=== PATIENT | female | born 1985 | race Asian ===

== ENCOUNTER → 2021-07-17 14:32 | Outpatient (CLI) | payer OTHER, SELFPAY ==
--- NOTE | 2021-07-17 14:39 | DI.US.S_ITS ---
PROCEDURE: US OB <= 14 WEEKS FETUS INDICATIONS: INITIAL VIABILITY DATING OUTSIDE/PRIOR DATING DATA: Last menstrual period (LMP): May 15, 2021 LMP-based estimated date of delivery (ALEXUS): February 19, 2022 First dating scan (date and location): July 17, 2021 Estimated date of delivery (ALEXUS) from first dating scan: February 22, 2022 TECHNIQUE: Real-time scanning was performed of the fetus and maternal pelvic organs, with image documentation. Endovaginal scanning was also performed to better visualize the fetus and maternal ovaries. COMPARISON: None. FINDINGS: Embryo: Single living intrauterine identified. Yolk sac and pole noted. Valders-rump length measures 2.0 centimeters corresponding to ultrasound estimated gestational age of 8 weeks 4 days. Heart rate: 180 beats per minute Measurement variability in dating: +/- 4 weeks by LMP, +/- 7 days by mean sac diameter (use before 6 weeks gestation if crown-rump length not able to be measured), +/- 5 days by crown-rump length (up to 8 weeks 6 days gestation), +/- 7 days by crown-rump length (up to 13 weeks 6 days gestation). Maternal organs: Ovaries suboptimally visualized. Probable small corpus luteal cyst noted in the right ovary. IMPRESSION: Single living intrauterine with ultrasound estimated gestational age of 8 weeks 4 days corresponding to ultrasound ALEXUS of February 22, 2022. Dictated by: Bindu Salazar MD, PhD on 07/17/2021 at 17:23 Approved by: Bindu Salazar MD, PhD on 07/17/2021 at 17:25
== END ==
PROVIDERS: PCP Obstetrics & Gynecology; Referring Provider Obstetrics & Gynecology; Visit Provider Obstetrics & Gynecology
DX: Z34.01 Encounter for supervision of normal first pregnancy, first trimester (principal); Z3A.08 8 weeks gestation of pregnancy
CPT/HCPCS: 76801; 76817

== ENCOUNTER → 2021-08-27 15:30 | Outpatient (CLI) | payer OTHER, SELFPAY ==
[2021-08-27 15:53] LABS: Appearance Urine UA CLEAR; Bilirubin Urine UA NEGATIVE (NEGATIVE); Color Urine UA YELLOW; Glucose Urine UA NEGATIVE (Negative); Ketones Urine UA NEGATIVE (NEGATIVE); Leukocyte Esterase Urine UA TRACE (NEGATIVE); Nitrite Urine UA NEGATIVE (Negative); Occult Blood Urine UA NEGATIVE (Negative); Protein Urine UA NEGATIVE (Negative); Urobilinogen Urine UA 0.2 E.U./dL (0.2)
[2021-08-27 16:16] LABS: Bacteria Urine None Seen; Culture Indicated Urine Cult Not Indicated; RBC Urine 0-1/HPF (0-5/HPF); Squamous Epithelial Cell Urine 1-5 /HPF (0-5/HPF); Transitional Epi Cells Urine 1-5/HPF (0-5/HPF); WBC Urine 1-5/HPF (0-5/HPF)
[2021-08-27 16:23] LABS: Add Manual Diff / Slide Review NO; Basophils Absolute Auto 100 /uL (0-100); Basophils Percent Auto 0.9 % (0-2); Eosinophils Absolute Auto 100 /uL (0-450); Eosinophils Percent Auto 1.3 % (2-4); Hematocrit 36.7 % (36-46); Hemoglobin 12.3 g/dL (12.0-16.0); Lymphocytes Absolute Auto 1500 /uL (1100-4500); Lymphocytes Percent Auto 16.7 % (25-40); Mean Corpuscular HGB Conc 33.7 % (30-36); Mean Corpuscular Hemoglobin 28.2 PG (26-34); Mean Corpuscular Volume 83.8 fL (80-100); Monocytes Absolute Auto 700 /uL (0-900); Monocytes Percent Auto 8.2 % (3-14); Neutrophils Absolute Auto 6600 /uL (1500-7000); Neutrophils Percent Auto 72.9 % (50-75); Platelet Count 274 X10^3/uL (150-400); Red Blood Cell Count 4.37 X10^6/uL (4.0-5.2); Red Cell Distribution Width 13.1 % (11.6-14.8); White Blood Cell Count 9.1 X10^3/uL (4.5-11.0)
[2021-08-28 05:04] LABS: RPR Screen Non Reactive (Non Reactive)
[2021-08-28 11:09] LABS: Varicella IgG Antibody 1711 index (Immune >165)
[2021-08-28 19:44] LABS: Hepatitis B Surface Antigen NEGATIVE s/c (NEGATIVE)
[2021-08-28 20:00] LABS: HIV 1 & 2 Ab/Ag 4th Gen Combo NEGATIVE (NEGATIVE); Hep C Virus Ab w/Reflex Quant NEGATIVE s/c (NEGATIVE)
== END ==
PROVIDERS: PCP Obstetrics & Gynecology; Referring Provider Obstetrics & Gynecology; Visit Provider Obstetrics & Gynecology
DX: Z34.01 Encounter for supervision of normal first pregnancy, first trimester (principal)
CPT/HCPCS: 36415; 80055; 81003; 81015; 86787; 86803; 86850; 86900; 86901; 87389

== ENCOUNTER → 2021-09-03 15:01 | Outpatient (CLI) | payer OTHER, SELFPAY | PROVIDERS: PCP Obstetrics & Gynecology; Referring Provider Obstetrics & Gynecology; Visit Provider Obstetrics & Gynecology | DX: O09.519 Supervision of elderly primigravida, unspecified trimester (principal) | CPT/HCPCS: 81420 ==

== ENCOUNTER → 2021-09-26 15:34 | Outpatient (CLI) | payer OTHER, SELFPAY ==
[2021-09-29 20:51] LABS: AFP Value 64.5 ng/mL (.); Gest Age on Col Date 19.1 weeks (.); Insulin Dep Diabetes No (.); OSBR Risk 1IN 8371 (.); Results Report (.); Test Results *Screen Negative* (.)
== END ==
PROVIDERS: PCP Obstetrics & Gynecology; Referring Provider Obstetrics & Gynecology; Visit Provider Obstetrics & Gynecology
DX: Z34.02 Encounter for supervision of normal first pregnancy, second trimester (principal); Z3A.19 19 weeks gestation of pregnancy
CPT/HCPCS: 36415; 82105

== ENCOUNTER → 2021-10-13 15:22 | Outpatient (CLI) | payer OTHER, SELFPAY ==
--- NOTE | 2021-10-13 15:26 | DI.US.S_ITS ---
PROCEDURE: US OB >= 14 WEEKS FETUS INDICATIONS: Anatomy Scan OUTSIDE/PRIOR DATING DATA: Last menstrual period (LMP): May 15, 2021. LMP-based estimated date of delivery (ALEXUS): February 19, 2022. First dating scan (date and location): [facility]; July 17, 2021. Estimated date of delivery (ALEXUS) from first dating scan: February 22, 2022. The calculations are made using the ultrasound ALEXUS of February 22, 2022. TECHNIQUE: Real-time scanning was performed of the fetus, with image documentation and biometric measurements. COMPARISON: None. FINDINGS: General: A single living intrauterine gestation is present. Presentation: Variable. Placenta: Placental position is posterior , without previa. Amniotic fluid index: 14.3 cm, normal range is 5-24 cm. Single deepest vertical pocket is 4.4 cm. heart rate: 157 beats per minute. Maternal cervical canal: 4.1 cm long. Normal lower limit is 2.5 cm. biometrics: Biparietal diameter: 4.8 cm Head circumference: 17.5 cm Abdominal circumference: 15.4 cm Femur length: 3.4 cm Clinically estimated gestational age: 21 weeks, 1 day Composite gestational age from present scan: 20 weeks, 3 days Estimated weight and percentile: 365 g +/-54 g; 20th percentile Anatomic survey: Neuro: Ventricles are non-dilated at less than 10 mm. Cisterna magna is normal at 3-11 mm. Cerebellum is normal in size and morphology. Nuchal skin fold: Normal at less than 6 mm between 14-21 weeks gestational age. Face: Nose and lips, facial profile are normal. Spine: No evidence for spina bifida. Heart: 4-chambered heart is present. Echogenic focus in the left ventricle. Diaphragm: Diaphragm is intact. Stomach: Left-sided stomach is present. Kidneys: No hydronephrosis. Normal is less than 5 mm in 2nd trimester, less than 7 mm in 3rd trimester. Cord: 3-vessel cord has orthotopic insertion. Bladder: Normal in size. Extremities: All 4 extremities identified. IMPRESSION: 1. Single live intrauterine gestation as detailed above. 2. Echogenic focus within the left ventricle. We strive to produce accurate, complete, and clear reports of imaging services. To assist us in improving patient care, this report was composed using standard report templates and voice recognition software. Therefore, it may contain abnormal punctuation, insertions and/or omissions. Occasional wrong-word or sound-alike substitutions may occur. Though we review the report and make efforts to correct it, we do recommend that the report be read carefully in proper context to recognize any text inaccuracies. Dictated by: Ankit Dickson M.D. on 10/14/2021 at 9:24 Approved by: Ankit Dickson M.D. on 10/14/2021 at 9:28
== END ==
PROVIDERS: PCP Obstetrics & Gynecology; Referring Provider Obstetrics & Gynecology; Visit Provider Obstetrics & Gynecology
DX: Z36.89 Encounter for other specified antenatal screening (principal); Z3A.20 20 weeks gestation of pregnancy
CPT/HCPCS: 76811

== ENCOUNTER → 2021-11-15 08:27 | Outpatient (CLI) | payer OTHER, MEDICAID, SELFPAY ==
[2021-11-15 09:50] LABS: Hematocrit 35.7 % (36-46); Hemoglobin 12.2 g/dL (12.0-16.0)
[2021-11-15 10:02] LABS: GTT (PREG) 1 Hour PP 50gm Dose 149 mg/dL (76-139)
== END ==
PROVIDERS: Referring Provider Obstetrics & Gynecology; Visit Provider Obstetrics & Gynecology
DX: Z34.03 Encounter for supervision of normal first pregnancy, third trimester (principal); Z3A.27 27 weeks gestation of pregnancy
CPT/HCPCS: 36415; 82950; 85014; 85018

== ENCOUNTER → 2021-11-21 14:41 | Outpatient (CLI) | payer OTHER, MEDICAID, SELFPAY ==
[2021-11-21 20:22] LABS: Urine N gonorrhoeae NOT DETECTED
[2021-11-21 20:24] LABS: Urine Chlamydia NOT DETECTED
== END ==
PROVIDERS: Visit Provider Obstetrics & Gynecology
DX: Z34.03 Encounter for supervision of normal first pregnancy, third trimester (principal); Z3A.27 27 weeks gestation of pregnancy
CPT/HCPCS: 87491; 87591

== ENCOUNTER → 2021-11-24 10:03 | Outpatient (CLI) | payer OTHER, MEDICAID, SELFPAY ==
[2021-11-24 12:57] LABS: Glucose Fasting Gestational 74 mg/dL (76-95)
[2021-11-24 13:29] LABS: Glucose 1 Hour Gest 135 mg/dL (76-180)
[2021-11-24 13:29] LABS: Glucose 2 Hour Gest 111 mg/dL (76-155)
[2021-11-24 13:44] LABS: Glucose Tol Interp,Gestational INTERPRETATION
[2021-11-24 16:44] LABS: Glucose 3 Hour Gest 92 mg/dL (76-140)
== END ==
PROVIDERS: Referring Provider Obstetrics & Gynecology; Visit Provider Obstetrics & Gynecology
DX: O99.810 Abnormal glucose complicating pregnancy (principal); Z3A.27 27 weeks gestation of pregnancy
CPT/HCPCS: 36415; 82951; 82952

== ENCOUNTER → 2021-12-01 11:15 | Outpatient (CLI) | payer OTHER, MEDICAID, SELFPAY ==
--- NOTE | 2021-12-01 11:18 | DI.US.S_ITS ---
PROCEDURE: US OB LIMITED INDICATIONS: RE-EVALUATE LEFT VENTRICLE OUTFLOW TRACT ECHOGENIC FOCI OUTSIDE/PRIOR DATING DATA: Last menstrual period (LMP): 05/15/2021. LMP-based estimated date of delivery (ALEXUS): 02/19/2022. First dating scan (date and location): 07/17/2021. Estimated date of delivery (ALEXUS) from first dating scan: 02/22/2022. TECHNIQUE: Real-time scanning was performed of the fetus, with image documentation. COMPARISON: [facility], OB >= 14 WEEKS FETUS, 10/13/2021, 17:08. [facility], OB <= 14 WEEKS FETUS, 07/17/2021, 14:52. FINDINGS: A single living intrauterine gestation is present. Presentation: Vertex. Placenta: Placental position is posterior, without previa. Amniotic fluid index: 16.0 cm, normal range is 5-24 cm. heart rate: 165 beats per minute. Maternal cervical canal: 5.6 cm long. Normal lower limit is 2.5 cm. Estimated gestational age from initial scan: 20 weeks 1 day Miscellaneous: Previous echogenic focus within the left ventricle is not visualized.. IMPRESSION: 1. Single live intrauterine . 2. Previously identified left ventricular echogenic focus is no longer visualized. Dictated by: Liliya Palafox M.D. on 12/01/2021 at 13:27 Approved by: Liliya Palafox M.D. on 12/01/2021 at 13:28
== END ==
PROVIDERS: Referring Provider Obstetrics & Gynecology; Visit Provider Obstetrics & Gynecology
DX: Z3A.27 27 weeks gestation of pregnancy; O35.8XX0 Maternal care for other (suspected) fetal abnormality and damage, not applicable or unspecified
CPT/HCPCS: 76815

== ENCOUNTER → 2022-01-23 15:33 | Outpatient (CLI) | payer OTHER, MEDICAID, SELFPAY ==
[2022-01-25 15:12] LABS: Strep Grp B PCR NEG for Grp B Strep
== END ==
PROVIDERS: Visit Provider Obstetrics & Gynecology
DX: Z34.03 Encounter for supervision of normal first pregnancy, third trimester (principal); Z3A.36 36 weeks gestation of pregnancy
CPT/HCPCS: 87653

== ENCOUNTER → 2022-02-20 16:09 | Outpatient (CLI) | payer OTHER, MEDICAID, SELFPAY ==
[2022-02-20 17:19] LABS: Creatinine Urine Random 10.7 mg/dL; Protein (Total) Urine Random 12 mg/dL (0-12); Protein Creatinine Ratio Urine 1.12 GRAM/24H
== END ==
PROVIDERS: Visit Provider Obstetrics & Gynecology
DX: O16.3 Unspecified maternal hypertension, third trimester (principal); Z3A.40 40 weeks gestation of pregnancy
CPT/HCPCS: 82570; 84156

== ENCOUNTER 2022-02-20 16:37 | Inpatient (IN) | payer OTHER, MEDICAID, SELFPAY ==
[2022-02-20 18:09] LABS: Add Manual Diff / Slide Review NO; Basophils Absolute Auto 100 /uL (0-100); Basophils Percent Auto 0.8 % (0-2); Eosinophils Absolute Auto 200 /uL (0-450); Eosinophils Percent Auto 2.9 % (2-4); Hematocrit 39.6 % (36-46); Hemoglobin 13.5 g/dL (12.0-16.0); Lymphocytes Absolute Auto 1500 /uL (1100-4500); Lymphocytes Percent Auto 18.5 % (25-40); Mean Corpuscular HGB Conc 34.2 % (30-36); Mean Corpuscular Hemoglobin 28.4 PG (26-34); Mean Corpuscular Volume 82.9 fL (80-100); Monocytes Absolute Auto 600 /uL (0-900); Monocytes Percent Auto 7.4 % (3-14); Neutrophils Absolute Auto 5600 /uL (1500-7000); Neutrophils Percent Auto 70.4 % (50-75); Platelet Count 230 X10^3/uL (150-400); Red Blood Cell Count 4.77 X10^6/uL (4.0-5.2); Red Cell Distribution Width 13.8 % (11.6-14.8)
[2022-02-20 18:17] LABS: Alanine Aminotransferase 18 IU/L (<35); Albumin 4.1 g/dL (3.5-5.0); Albumin Globulin Ratio 1.2 (1.0-2.8); Alkaline Phosphatase 117 U/L (38-126); Aspartate Aminotransferase 30 IU/L (14-36); BUN Creatinine Ratio 13.2 (6-22); Bilirubin Total 0.2 mg/dL (0.2-1.3); Blood Urea Nitrogen 9 mg/dL (7-17); Calcium 9.7 mg/dL (8.4-10.2); Carbon Dioxide 22 mmol/L (22-32); Chloride 107 mmol/L (98-107); Estimated Glomerular Filt Rate > 60 mL/min (>60); Globulin 3.4 g/dL (1.7-4.1); Glucose 90 mg/dL (70-100); HEMOLYSIS < 15 (0-50); Sodium 135 mmol/L (137-145); Total Protein 7.5 g/dL (6.3-8.2)
[2022-02-20 18:55] LABS: Creatinine Urine Random 10.6 mg/dL; Protein (Total) Urine Random 12 mg/dL (0-12); Protein Creatinine Ratio Urine 1.13 GRAM/24H
[2022-02-20 19:35] LABS: Creatinine Urine Random 14.3 mg/dL; Protein (Total) Urine Random 12 mg/dL (0-12); Protein Creatinine Ratio Urine 0.83 GRAM/24H
--- NOTE | 2022-02-20 19:47 | PM.OBHP.IH.1 ---
OB HPI Date/Time Date of admission: 02/20/22 Date Patient Seen: 02/20/22 Time Patient Seen: 19:00 History of Present Condition Chief complaint: NST ALEXUS Calculator Estimated Delivery Date Method Current WG Current Estimate 02/19/22 LMP (Certain) 40w 2d Other Estimates 02/22/22 Ultrasound #1 39w 6d Estimated Gestational Age (weeks): 40 : 1 Para: 0 Narrative: This patient is a 36yo @40+1, admitted from clinic with preeclampsia without severe features. The patient has had a previously uncomplicated though she is AMA, though some recent BPs of 130s/80s. Today, she was 140s/90s in clinic, and has new onset, significant proteinuria. She denies headache, visual changes, swelling, or RUQ pain. She reports good movement, has some bloody show, and is having painful contractions q5. She has no other contributory medical, surgical, or family history. care: good care Dating criteria OB: LMP confirmed by 1st trimester US Ultrasounds: normal mid trimester US Obstetrical complications: none Medical complications OB: none Indications Indication for induction OB: gestational HTN/pre-eclampsia Preadmission Labs Last OB Lab Results: Blood Type B Positive 02/20/22 22:10 02/20/22 Antibody Screen Negative 02/20/22 22:10 02/20/22 Hematocrit 39.9 % (36-46) 02/20/22 22:10 02/20/22 Hemoglobin 13.8 g/dL (12.0-16.0) 02/20/22 22:10 02/20/22 Hepatitis B Surface Antigen Negative s/c (NEGATIVE) 08/27/21 15:33 08/27/21 Hepatitis C Antibody Negative s/c (NEGATIVE) 08/27/21 15:33 08/27/21 Rubella Antibody 156.0 IU/mL (>15) 08/27/21 15:33 08/27/21 Varicella-Zoster IgG Antibody 1711 index (Immune >165) 08/27/21 15:33 08/27/21 Glucose 1 Hour 149 mg/dL (76-139) H 11/15/21 09:51 11/15/21 Group B Streptococcus (PCR) Neg for grp b strep 01/23/22 15:33 01/23/22 Glucose Tolerance Testing: Fasting (74), 1 hr (135), 2 hr (111) and 3 hr (92) -: Chlamydia screen: negative, Gonorrhea screen: negative and Urine: negative Genetic Screens: Cell-free DNA: Normal External Labs -: Urine: negative Evaluation Evaluation Baseline heart rate: 130 Variability: Average (6-10) monitor accelerations: Present Monitor Decelerations: Absent Category of Tracing: Reactive Status: Category l Dilation (cm): 1 Effacement (%): 80 Dilation: 1-2 cm Effacement: >/=80% station: 0 Position of cervix: mid Consistency: soft Caicedo score: 9 [facility] Medical History Acne (~05/2021) AMA (advanced maternal age) primigravida 35+ COVID-19 (~12/2020) Family History Father Diabetes mellitus Hypertension Mother Pre-diabetes Grandfather Cough Grandmother No problems noted. Grandfather No problems noted. Grandmother No problems noted. Sister Healthy adult Sister Healthy adult Brother Healthy adult Family/Other Diabetes mellitus Social History marital status: unmarried,living together number of children: 0 household members: significant other and family lives independently: Yes caregiver/support person: Yes pets and animals: No education level: college occupational status: employed current occupational exposures/hazards: Yes Previous occupational history: [employer] : works on the [employer] special elke needs: No Smoking Status: Never smoker second hand exposure: No alcohol intake: former substance use type: does not use Meds Home Medications and Allergies Home Medications Medication Instructions Recorded Confirmed Type ascorbic acid (vitamin C) 1,000 mg 1 g PO DAILY tab 07/22/21 02/20/22 History tablet prenat.vits,lidya,fza-dzyd-yklmk 1 tab PO DAILY 07/22/21 02/20/22 History Allergies Allergy/AdvReac Type Severity Reaction Status Date / Time No Known Drug Allergies Allergy Verified 02/20/22 22:36 Review of Systems Constitutional Constitutional: Reports system reviewed and no additional complaints, except as documented Cardiovascular Cardiovascular: Reports system reviewed and no additional complaints, except as documented Respiratory Respiratory: Reports system reviewed and no additional complaints, except as documented Gastrointestinal Gastrointestinal: Reports as per HPI Genitourinary Genitourinary: Reports as per HPI Neurologic Neurologic: Reports system reviewed and no additional complaints, except as documented OB Exam [facility] Head: normal to inspection Resp Auscultation: clear to auscultation bilaterally Cardio Rate: regular rate Rhythm: regular rhythm Extremities Lower extremity: Yes normal to inspection GI Palpation: Yes soft and No tender External Female Exam: Yes normal external appearance Presentation: vertex Estimated Weight (lbs): 7 Objective Labs Result Diagrams: 02/20/22 22:10 02/20/22 17:15 Labs: Laboratory Results - last 24 hr 02/20/22 02/20/22 02/20/22 16:49 17:15 17:15 WBC 8.0 RBC 4.77 Hgb 13.5 Hct 39.6 MCV 82.9 MCH 28.4 MCHC 34.2 RDW 13.8 Plt Count 230 Neut % (Auto) 70.4 Lymph % (Auto) 18.5 L [place] % (Auto) 7.4 Eos % (Auto) 2.9 Baso % (Auto) 0.8 Neut # (Auto) 5600 Lymph # (Auto) 1500 [place] # (Auto) 600 Eos # (Auto) 200 Baso # (Auto) 100 Sodium 135 L Potassium 4.0 Chloride 107 Carbon Dioxide 22 BUN 9 Creatinine 0.68 Estimated GFR > 60 BUN/Creatinine Ratio 13.2 Glucose 90 Uric Acid 7.0 H Calcium 9.7 Total Bilirubin 0.2 AST 30 ALT 18 Alkaline Phosphatase 117 Total Protein 7.5 Albumin 4.1 Globulin 3.4 Albumin/Globulin Ratio 1.2 U Random Total Protein 12 Urine Creatinine 10.6 Protein/Creatinin Ratio 1.13 02/20/22 19:30 WBC RBC Hgb Hct MCV MCH MCHC RDW Plt Count Neut % (Auto) Lymph % (Auto) [place] % (Auto) Eos % (Auto) Baso % (Auto) Neut # (Auto) Lymph # (Auto) [place] # (Auto) Eos # (Auto) Baso # (Auto) Sodium Potassium Chloride Carbon Dioxide BUN Creatinine Estimated GFR BUN/Creatinine Ratio Glucose Uric Acid Calcium Total Bilirubin AST ALT Alkaline Phosphatase Total Protein Albumin Globulin Albumin/Globulin Ratio U Random Total Protein 12 Urine Creatinine 14.3 Protein/Creatinin Ratio 0.83 Assessment and Plan Assessment and Plan Assessment and Plan narrative: This patient is admitted with preeclampsia without severe features, meeting diagnostic criteria even though she is largely normotensive. She will be admitted for delivery, especially given that she lives remote from the hospital and is past her due date. The status of the labor floor prevents induction of labor overnight, but she will be admitted for expectant management and close monitoring of status and vital signs. A cervical membrane sweep was performed to facilitate labor. - GBS negative - NST q shift - BPs q1hr while awake, q4 while asleep - Reassessment of labor status with induction per pitocin protocol if necessary anticipated in AM.
[2022-02-20 21:15] VITALS: BP 135/82
[2022-02-20 22:29] LABS: Add Manual Diff / Slide Review NO; Basophils Absolute Auto 100 /uL (0-100); Basophils Percent Auto 0.8 % (0-2); Eosinophils Absolute Auto 200 /uL (0-450); Eosinophils Percent Auto 2.7 % (2-4); Hematocrit 39.9 % (36-46); Hemoglobin 13.8 g/dL (12.0-16.0); Lymphocytes Absolute Auto 1500 /uL (1100-4500); Lymphocytes Percent Auto 17.9 % (25-40); Mean Corpuscular HGB Conc 34.7 % (30-36); Mean Corpuscular Hemoglobin 28.6 PG (26-34); Mean Corpuscular Volume 82.5 fL (80-100); Monocytes Absolute Auto 600 /uL (0-900); Monocytes Percent Auto 7.4 % (3-14); Neutrophils Absolute Auto 6200 /uL (1500-7000); Neutrophils Percent Auto 71.2 % (50-75); Platelet Count 245 X10^3/uL (150-400); Red Blood Cell Count 4.84 X10^6/uL (4.0-5.2); Red Cell Distribution Width 13.8 % (11.6-14.8); White Blood Cell Count 8.6 X10^3/uL (4.5-11.0)
[2022-02-20 22:42] LABS: COVID19 -Nasal RAPID Negative (Negative)
--- NOTE | 2022-02-21 08:40 | PM.OBPNLAB ---
Date/Time Date Patient Seen: 02/21/22 Time Patient Seen: 08:40 Pain Control Pain control: tolerating well Comments: 03/17, contractions more frequent and painful overnight Pelvic Exam Dilation (cm): 3 Effacement (%): 100 station: 0 Amniotic membrane status: Intact Comments: Vertex palpably OP Contractions Contraction frequency (min): 3 Contraction duration (min): 1 Status status: Category l Heart Rate Baseline: 130 Monitor Accelerations: Present Monitor Decelerations: Absent Monitor Variability: Moderate Assessment and Plan Plan: continuous present management Comments: Patient is in early labor. Will monitor for progress, and patient encouraged to ambulate. Recheck later in AM with augmentation as indicated.
--- NOTE | 2022-02-21 14:49 | PM.OBPNLAB ---
Date/Time Date Patient Seen: 02/21/22 Time Patient Seen: 14:49 Pain Control Pain control: tolerating well Pelvic Exam Dilation (cm): 4 Effacement (%): 100 station: 0 Amniotic membrane status: Ruptured (AROM of forebag) Comments: SROM for clear fluid at 1:30 PM. On this exam, forebag ruptured. Both for clear fluid. Contractions Contraction frequency (min): 2 Status status: Category l Heart Rate Baseline: 140 Monitor Accelerations: Present Monitor Decelerations: Absent Monitor Variability: Moderate Assessment and Plan Assessment: active labor Plan: continuous present management
--- NOTE | 2022-02-21 18:21 | PM.OBPNLAB ---
Date/Time Date Patient Seen: 02/21/22 Time Patient Seen: 18:21 Pain Control Pain control: tolerating well Pelvic Exam Dilation (cm): 5 Effacement (%): 100 station: 0 Amniotic membrane status: Leaking (clear fluid) Comments: ROP and asynclitic confirmed with ultrasound- placed in exaggerated pickering position. Contractions Pitocin rate (mU/min): 1 Contraction frequency (min): 2 Status status: Category l Heart Rate Baseline: 135 Monitor Accelerations: Present Monitor Decelerations: Absent Monitor Variability: Moderate Comments: 110s-130s/80s today, afebrile, not tachycardic Assessment and Plan Assessment: induction ongoing Plan: continuous present management Comments: This patient is making slow progress, spontaneously laboring with SROM at 1:45 and then AROM of a forebag at 2:45. Patient 5cm but has caput, ROP and asynclitic presentation palpable on exam and confirmed with ultrasound. Given irregular contraction pattern to start pitocin slowly, aggressively reposition.
[2022-02-21] MEDS: LACTATED RINGERS 1,000 ML 100 ML IV ×2 (18:57→19:56)
[2022-02-21] MEDS: OXYTOCIN PREMIX 30 UNIT/500 ML PLAST..BAG IV (20:48)
--- NOTE | 2022-02-21 21:46 | PM.OBPNLAB ---
Date/Time Date Patient Seen: 02/21/22 Time Patient Seen: 21:46 Pain Control Pain control: epidural Pelvic Exam Dilation (cm): 8 Effacement (%): 100 station: 0 Amniotic membrane status: Leaking (clear fluid) Comments: Direct OP, resistant to turning vertex to OA presentation Contractions Pitocin rate (mU/min): 1 Contraction frequency (min): 2 Status status: Category l Heart Rate Baseline: 130 Monitor Accelerations: Present Monitor Decelerations: Variable Monitor Variability: Moderate Comments: + scalp stim Assessment and Plan Assessment: active labor Plan: continuous present management Comments: This patient has a cat 2 EFM in the setting of rapid cervical change, from 6cm at 8:30 to 8cm at 9:30. good scalp stim. Pitocin off, will reposition and continue to closely monitor.
--- NOTE | 2022-02-21 22:30 | P.PNOB_ITS ---
Date/Time Date Patient Seen: 02/21/22 Time Patient Seen: 22:30 Pain Control Pain control: epidural Pelvic Exam Dilation (cm): 9 Effacement (%): 100 station: 0 Amniotic membrane status: Leaking (clear fluid) Comments: Direct OP Contractions Pitocin rate (mU/min): 0 Contraction frequency (min): 5 Status status: Category ll Heart Rate Baseline: 140 Monitor Accelerations: Absent Monitor Decelerations: Late and Variable Monitor Variability: Minimal Assessment and Plan Comments: This patient is 9cm, but direct OP and beginning to have recurrent late and variable decelerations with 1x prolonged deceleration. We discussed the cat 2 EFM, and that given the overall clinical picture I would like to prepare for section and recheck her cervix prior to transfer to the OR. We discu ssed the risks of section including infection, hemorrhage, damage to bowel and bladder, and danger in future pregnancies. We discussed the benefit of safety to baby. Informed consent was obtained and consents were signed.
--- NOTE | 2022-02-21 23:16 | SUR.OPER ---
Supine on Padded OR bed, head on pillow, safety belt at thigh, arms secured on padded arm boards at <90 degrees abduction. Bump under right buttock. Legs uncrossed with pillow under knees, gel pad to heels, tape over blanket to lower legs.
[2022-02-21] MEDS: AZITHROMYCIN 500 MG in DEXTROSE 5% IN WATER 250 ML IV (23:20)
[2022-02-21] MEDS: CEFAZOLIN 2 GM/20 ML SYRINGE IV (23:22)
[2022-02-21] MEDS: TRANEXAMIC ACID 1,000 MG in SODIUM CHLORIDE 0.9% 100 ML 200 ML IV (23:49)
--- NOTE | 2022-02-21 23:54 | SUR.OPER ---
Viable baby girl born at 2331, placenta and cord tubes sent with OB nurses.
--- NOTE | 2022-02-22 00:49 | P.OP_ITS ---
Operative Date/Time/Diagnoses Date of procedure: 02/21/22 Time of procedure: 23:00 Pre-op diagnosis: cat 2 EFM Post-op diagnosis: same Procedure & Clinicians Procedure: Primary section Same procedure as scheduled: Yes Indications: cat 2 EFM, OP presentation Surgeon: Rosa Holloway Quality Analyst/Technical Writer: Fariha Baldwin Reason for Quality Analyst/Technical Writer: Assistance with retraction, delivery of infant, and suturing Anesthesia Type: Spinal Operative Notes Findings: Normal uterus, tubes, and ovaries. Female infant in cephalic, direct OP presentation. Loose nuchal cord reduced during delivery, weight 5#12, Apgars 7+8. Markedly contracted pelvis. Closure Type: primary Specimen(s): cord blood and cord pH Intraoperative meds administered: Pitocin and Tranexamic acid Applied: Catheter Estimated Blood Loss (mL): 1,000 Procedure in detail: EBL: 1000ccs Fluids:800ccs LR UOP: 200ccs clear yellow urine Procedures: The patient was taken to the operating room after spinal anesthesia was bolused in the labor room. The heart rate was found to be 76 after transfer to the OR table, and she was prepped and draped emergently in a sterile fashion in the dorsal supine position with a leftward tilt. A Pfannenstiel skin incision was made with a scalpel and carried through to the underlying layer of fascia. The fascia was incised in the midline and extended bluntly. The superior aspect of this incision was grasped with Dion clamps, elevated, and the underlying rectus muscles dissected off bluntly and with the curved Brewster scissors. Attention was then turned to the inferior aspect of this incision which, in a similar fashion, was grasped, tented up with the Dion clamps, and the rectus muscles dissected off bluntly and with the curved Brewster scissors. The rectus muscles were then in the midline, and the peritoneum entered bluntly. The peritoneal incision was extended superiorly and inferiorly with good visualization of the bladder. The bladder blade was inserted and the vesicouterine peritoneum identified, grasped with pickups, and entered sharply with the Metzenbaum scissors. This incision was extended laterally, and the bladder flap created digitally. The bladder blade was then reinserted and the lower uterine segment incised in transverse fashion with the scalpel. The uterine incision was bluntly extended laterally. The bladder blade was removed, and the infant's head delivered atraumatically with some difficulty due to the molding and OP presentation. The cord was immediately clamped and cut, the handed to the pediatrics team, and a portion of cord reserved for a cord pH. The placenta was then removed spontaneously, and the uterus was exteriorized and cleared of all clots and debris. The uterine incision was repaired with 1-0 chromic in a running, locked fashion. A right sided broad ligament extension was noted, requiring figure of 8 suturing to achieve hemostasis. A 2nd layer of the same suture was used to obtain excellent hemostasis. The uterus was returned to the abdomen, and the gutters were cleared of all clots and debris. The bladder flap was closed with 2-0 Vicryl in a running fashion, and the fascia reapproximated with 0 Vicryl in a running fashion. The blunt entry into the peritoneum made peritoneal closure difficult. The subcutaneous layer was placed with 3 0 Vicryl in an interrupted fashion and the skin was closed with 4-0 biosyn in a running fashion. The patient tolerated the procedure well sponge lap and needle counts were correct x2. 2 g of Ancef and 500mg Azithromycin were given at commencement of the case. The patient was taken to the recovery room in stable condition. Complications: none Baby 1: Infant Gender: Male Presentation: vertex Position: Occiput Posterior Placental Delivery Description: Manual Removal Cord Vessel Description: Nuchal Cord score (1 min): 7 score (5 min): 8 weight: 5 lb 12 oz Post-operative Condition: stable Disposition: PACU Aftercare: routine postop
[2022-02-22 00:50] VITALS: BP 125/53; PULSE 97; RESP 22; O2SAT 100
[2022-02-22 00:55] VITALS: BP 121/76; PULSE 96; RESP 22; O2SAT 100
[2022-02-22 01:52] LABS: Add Manual Diff / Slide Review NO; Basophils Absolute Auto 100 /uL (0-100); Basophils Percent Auto 0.6 % (0-2); Eosinophils Absolute Auto 0 /uL (0-450); Eosinophils Percent Auto 0.1 % (2-4); Hematocrit 34.9 % (36-46); Hemoglobin 11.7 g/dL (12.0-16.0); Lymphocytes Absolute Auto 700 /uL (1100-4500); Lymphocytes Percent Auto 4.9 % (25-40); Mean Corpuscular HGB Conc 33.6 % (30-36); Mean Corpuscular Hemoglobin 27.9 PG (26-34); Monocytes Absolute Auto 700 /uL (0-900); Monocytes Percent Auto 5.3 % (3-14); Neutrophils Absolute Auto 12200 /uL (1500-7000); Neutrophils Percent Auto 89.1 % (50-75); Platelet Count 209 X10^3/uL (150-400); Red Blood Cell Count 4.21 X10^6/uL (4.0-5.2); Red Cell Distribution Width 13.8 % (11.6-14.8); White Blood Cell Count 13.7 X10^3/uL (4.5-11.0)
[2022-02-22 06:23] LABS: Add Manual Diff / Slide Review NO; Basophils Absolute Auto 100 /uL (0-100); Basophils Percent Auto 0.4 % (0-2); Eosinophils Absolute Auto 0 /uL (0-450); Hematocrit 31.4 % (36-46); Hemoglobin 10.8 g/dL (12.0-16.0); Lymphocytes Absolute Auto 800 /uL (1100-4500); Lymphocytes Percent Auto 5.6 % (25-40); Mean Corpuscular HGB Conc 34.3 % (30-36); Mean Corpuscular Hemoglobin 28.2 PG (26-34); Mean Corpuscular Volume 82.2 fL (80-100); Monocytes Absolute Auto 900 /uL (0-900); Monocytes Percent Auto 6.8 % (3-14); Neutrophils Absolute Auto 11900 /uL (1500-7000); Neutrophils Percent Auto 87.2 % (50-75); Platelet Count 189 X10^3/uL (150-400); Red Blood Cell Count 3.82 X10^6/uL (4.0-5.2); Red Cell Distribution Width 13.7 % (11.6-14.8); White Blood Cell Count 13.7 X10^3/uL (4.5-11.0)
[2022-02-22] MEDS: DOCUSATE 100 MG CAPSULE 200 MG PO (09:20)
[2022-02-22 09:21] VITALS: TEMP 37
[2022-02-22] MEDS: OXYCODONE IR 5 MG TABLET PO ×2 (09:21→17:27)
[2022-02-22 09:22] VITALS: TEMP 37
[2022-02-22] MEDS: ACETAMINOPHEN 325 MG TABLET 650 MG PO ×2 (09:22→17:27)
[2022-02-22] MEDS: FERROUS SULFATE 325 MG TABLET PO (09:23)
[2022-02-22] MEDS: PRENATAL VIT,CALC/IRON/FOLIC 1 TABLET 1 TAB PO (09:23)
--- NOTE | 2022-02-22 11:38 | PM.OBPN.1 ---
Subjective - OB Subjective Patient comments: no complaints, pain well controlled and tolerating diet baby status: doing well feeding status: exclusively breast feeding Narrative: This patient is a 36yo POD#1 s/p pCS for intolerance of labor overnight last night. Patient reports good pain control on PO meds, tolerating diet, no BRAVO, visual changes, SOB, RUQ pain. Has mcneal in place and has not ambulated, feeling gas but no flatus. Date Patient Seen: 02/22/22 Time Patient Seen: 11:41 Exam Vital Signs (past 8 hours): 110s/70s today, HR 80s, afebrile 02/22/22 09:21 02/22/22 09:22 Temperature 98.6 F 98.6 F Oxygen Delivery Method Room Air Const General: cooperative, healthy appearing, comfortable and well groomed Resp Effort & Inspection: normal respiratory effort Auscultation: clear to auscultation bilaterally Cardio Rate: regular rate Rhythm: regular rhythm GI Inspection: distended (soft, tympanic) Palpation: soft and No tender Other: fundus firm, well below u Extrem General: normal to inspection Objective Labs Result Diagrams: 02/22/22 06:13 02/20/22 17:15 Labs: Laboratory Results - last 24 hr 02/22/22 02/22/22 01:43 06:13 WBC 13.7 H D 13.7 H RBC 4.21 3.82 L Hgb 11.7 L 10.8 L Hct 34.9 L 31.4 L MCV 83.0 82.2 MCH 27.9 28.2 MCHC 33.6 34.3 RDW 13.8 13.7 Plt Count 209 189 Neut % (Auto) 89.1 H 87.2 H Lymph % (Auto) 4.9 L 5.6 L [place] % (Auto) 5.3 6.8 Eos % (Auto) 0.1 L 0.0 L Baso % (Auto) 0.6 0.4 Neut # (Auto) 87580 H 93079 H Lymph # (Auto) 700 L 800 L [place] # (Auto) 700 900 Eos # (Auto) 0 0 Baso # (Auto) 100 100 Assessment & Plan Plan day: 1 plan OB: routine postop care Comments: This patient is POD#1 s/p primary section for intolerance of labor. The CS was complicated by a broad ligament extension, but hemostasis was eventually achieved. The patient is recovering well today, though she is for a voiding trial and ambulation today. - PIH labs tomorrow AM, repeat CBC - ambulation encouraged, ISS at bedside - VT now Time Spent With Patient Time: Total time spent is greater than 50% in coordination of care (as documented) at patient's floor/unit and/or counseling patient: Time with patient: 15-24 minutes
[2022-02-23] MEDS: OXYCODONE IR 5 MG TABLET PO ×3 (04:15→17:00)
[2022-02-23] MEDS: ACETAMINOPHEN 325 MG TABLET 650 MG PO ×2 (04:16→17:00)
[2022-02-23 05:27] LABS: Add Manual Diff / Slide Review NO; Basophils Absolute Auto 100 /uL (0-100); Basophils Percent Auto 0.4 % (0-2); Eosinophils Absolute Auto 0 /uL (0-450); Eosinophils Percent Auto 0.3 % (2-4); Hematocrit 30.4 % (36-46); Hemoglobin 10.5 g/dL (12.0-16.0); Lymphocytes Absolute Auto 900 /uL (1100-4500); Lymphocytes Percent Auto 5.7 % (25-40); Mean Corpuscular HGB Conc 34.4 % (30-36); Mean Corpuscular Hemoglobin 28.4 PG (26-34); Mean Corpuscular Volume 82.4 fL (80-100); Monocytes Absolute Auto 1100 /uL (0-900); Monocytes Percent Auto 6.9 % (3-14); Neutrophils Absolute Auto 13400 /uL (1500-7000); Neutrophils Percent Auto 86.7 % (50-75); Platelet Count 184 X10^3/uL (150-400); Red Blood Cell Count 3.69 X10^6/uL (4.0-5.2); Red Cell Distribution Width 14.3 % (11.6-14.8); White Blood Cell Count 15.4 X10^3/uL (4.5-11.0)
[2022-02-23 05:44] LABS: Alanine Aminotransferase 16 IU/L (<35); Alkaline Phosphatase 76 U/L (38-126); Aspartate Aminotransferase 35 IU/L (14-36); BUN Creatinine Ratio 15.9 (6-22); Bilirubin Total 0.3 mg/dL (0.2-1.3); Blood Urea Nitrogen 11 mg/dL (7-17); Calcium 8.6 mg/dL (8.4-10.2); Carbon Dioxide 24 mmol/L (22-32); Chloride 105 mmol/L (98-107); Estimated Glomerular Filt Rate > 60 mL/min (>60); Glucose 108 mg/dL (70-100); HEMOLYSIS < 15 (0-50); Lactate Dehydrogenase 585 U/L (313-618); Potassium 3.6 mmol/L (3.4-5.1); Sodium 133 mmol/L (137-145)
[2022-02-23 09:05] VITALS: TEMP 36.4
[2022-02-23] MEDS: FERROUS SULFATE 325 MG TABLET PO (09:05)
[2022-02-23] MEDS: DOCUSATE 100 MG CAPSULE 200 MG PO (09:05)
[2022-02-23] MEDS: PRENATAL VIT,CALC/IRON/FOLIC 1 TABLET 1 TAB PO (09:05)
--- NOTE | 2022-02-23 15:49 | P.DS_ITS ---
Discharge Providers Provider Date of admission: 02/20/22 16:37 Discharge Date: 02/23/22 Primary care physician: Doctor Maribel MD Consults: 02/20/22 21:43 Consult to Anesthesiology Urgent Comment: Consulting Provider: Anesthesiologist Reason for consultation: labor 02/22/22 00:57 Consult to Plant Health Care Technician Routine Comment: Discharge provider: Rosa Holloway MD Summary Hospital Course Date Patient Seen: 02/23/22 Time Patient Seen: 08:30 Diagnoses: preeclampsia Hospital Course: THis patient was admitted for eventual induction of labor after being found to have preclampsia without severe features at 37 weeks gestation. Staffing required a 12 hour observation after admission, and the patient entered spontaneous labor. She had a cat 2 EFM and was taken for primary CS for intolerance of labor. Her postoperative course was uneventful, and she was discharged home on POD#2. Peripartum Data Infant Delivery Method: Section complications: none [place] 1: Gender: Male Disposition of : home Status at Discharge Cognitive/behavioral status at discharge: oriented Overall status at discharge: patient is progressing back to baseline Time Spent with Patient Time attestation: Total time spent providing and/or coordinating discharge services: Objective Labs Result Diagrams: 02/23/22 05:15 02/23/22 05:15 Labs: Laboratory Results - last 24 hr 02/23/22 02/23/22 05:15 05:15 WBC 15.4 H RBC 3.69 L Hgb 10.5 L Hct 30.4 L MCV 82.4 MCH 28.4 MCHC 34.4 RDW 14.3 Plt Count 184 Neut % (Auto) 86.7 H Lymph % (Auto) 5.7 L [place] % (Auto) 6.9 Eos % (Auto) 0.3 L Baso % (Auto) 0.4 Neut # (Auto) 74226 H Lymph # (Auto) 900 L [place] # (Auto) 1100 H Eos # (Auto) 0 Baso # (Auto) 100 Sodium 133 L Potassium 3.6 Chloride 105 Carbon Dioxide 24 BUN 11 Creatinine 0.69 Estimated GFR > 60 BUN/Creatinine Ratio 15.9 Glucose 108 H Uric Acid 6.0 Calcium 8.6 Total Bilirubin 0.3 AST 35 ALT 16 Alkaline Phosphatase 76 Lactate Dehydrogenase 585 Total Protein 6.0 L Albumin 3.0 L Globulin 3.0 Albumin/Globulin Ratio 1.0 Exam Vital Signs (past 8 hours): BPs 110s-120s/70s , HR 80s, afebrile 02/23/22 09:05 Temperature 97.5 F L Oxygen Delivery Method Room Air Narrative Exam Narrative: Patient doing well this AM, mild lochia, voiding, passing flatus, ambulating, tolerating PO. No PIH symptoms. Const General: cooperative, healthy appearing, comfortable and well groomed Resp Effort & Inspection: normal respiratory effort Auscultation: clear to auscultation bilaterally Cardio Rate: regular rate Rhythm: regular rhythm GI Inspection: incision (c/d/i) Palpation: soft and No tender Extrem General: normal to inspection Discharge Plan Discharge Plan Patient Disposition: Home Discharge orders & Medications Prescriptions: New oxycodone 5 mg tablet 5 mg PO Q6H PRN (Reason: pain) Qty: 20 0RF Rx Instructions: Take as often as every 6 hours for pain. Continued prenat.vits,lidya,xde-usst-pypju Tablet 1 tab PO DAILY 0RF ascorbic acid (vitamin C) 1,000 mg tablet 1 g PO DAILY 0RF Follow up/Referrals: Rio Walters MD [Physician] - 1 Week (Incision and BP check on WednesdayFebruary 27 at 3:30pm with a 3:15 check-in time. Please follow up with Dr. Walters for a 6 week check on WednesdayApril 03 at 1:30pm with a 1:15 check in time. If you have any questions/concerns or need to reschedule please call .) Diet/Activity/Treatments Diet: Regular Activity: Nothing in the vagina for 6 weeks. Avoid lifting more than 10 pounds for 6 weeks. If you develop headaches, visual changes, fevers, chills, nausea, increasing pain, increasing bleeding, or any other symptoms, call or come to the emergency department. Skin/Wound/Dressing Care Report to your healthcare provider any signs of infection, such as:: chills, fever, night sweats, increased pain, unusual drainage and unusual redness Dressing: Can shower with bandage, pat dry. For removal at incision check. Visit Report/Discharge Packet Instructions: DI for , DI for Prescription Opioid Use Stand Alone Forms: Discharge: Care Discharge Data Primary Care Provider: Miscellaneous,Doctor
[2022-02-23 16:16] VITALS: BP 118/74; PULSE 88; RESP 17; TEMP 36.8
[2022-02-23 17:00] VITALS: TEMP 36.9
== END 2022-02-23 19:00 | disposition home or self-care (01) | DRG 788 ==
PROVIDERS: Obstetrics & Gynecology; Admitting Provider Obstetrics & Gynecology; Referring Provider Obstetrics & Gynecology; Visit Provider Obstetrics & Gynecology
PROC: 10D00Z1 Extraction of Products of Conception, Low, Open Approach (ICD-10-PCS; CPT 59514; principal; 2022-02-21 23:00)
DX: O76 Abnormality in fetal heart rate and rhythm complicating labor and delivery (principal); O69.81X0 Labor and delivery complicated by cord around neck, without compression, not applicable or unspecified; Z3A.40 40 weeks gestation of pregnancy; Z37.0 Single live birth; O14.04 Mild to moderate pre-eclampsia, complicating childbirth; O32.8XX0 Maternal care for other malpresentation of fetus, not applicable or unspecified; Z20.822 Contact with and (suspected) exposure to COVID-19
CPT/HCPCS: 01967; 01968; 36415; 59025; 59050; 59510; 59514; 80053; 82570; 83615; 84156; 84550; 85025; 86850; 86900; 86901; 87635; C9803; G0379; J0690; J1885; J2250; J2274; J2590; J3010

== ENCOUNTER 2023-02-05 15:56 | Emergency (ER) | payer OTHER, MEDICAID, SELFPAY ==
[2023-02-05 16:09] VITALS: BP 145/88; PULSE 87; RESP 17; TEMP 36.6; O2SAT 100; BMI 23.8
[2023-02-05 17:30] VITALS: BP 121/69; PULSE 78; RESP 12; O2SAT 100
--- NOTE | 2023-02-05 17:33 | PC.NURSE ---
patient went to PCP for medicatons for migraine. + Preg at PCP/ HTN at clinic and upon arrival. Patient reports increase stress secondary to her baby current health condition. currently not on birthcontrol. Denies cramping, vaginal discharge or urinary symptoms
[2023-02-05 18:00] VITALS: BP 114/72; PULSE 68; RESP 12; O2SAT 100
[2023-02-05 18:11] VITALS: BP 116/72; PULSE 78; RESP 12
--- NOTE | 2023-02-05 18:14 | ED_ITS ---
HPI - General Adult General Chief complaint: Hypertension Stated complaint: Ref from provider Time Seen by Provider: 02/05/23 18:05 Source: patient Mode of arrival: Ambulatory History of Present Illness HPI narrative: 37-year-old female nonsmoker presents at the request of her primary care provider for evaluation of elevated blood pressure in the setting of . Patient has no symptoms such as blurred vision, chest pain or shortness of breath. She has no abdominal pain, bleeding, leakage of fluid or other. Related Data Home Medications Medication Instructions Recorded Confirmed prenat.vits,lidya,qzy-lrzv-nuhxp 1 tab PO DAILY 07/22/21 02/05/23 Allergies Allergy/AdvReac Type Severity Reaction Status Date / Time No Known Drug Allergies Allergy Verified 02/05/23 16:13 Review of Systems Review of Systems Narrative: GENERAL: Denies chills, fatigue, malaise, fever, sweats. HEENT: Denies sinus pain, ear pain, sore throat, difficulty swallowing, dizziness. RESPIRATORY: Denies dyspnea, cough, wheezing, hemoptysis, sputum. CARDIOVASCULAR: Denies chest pain, palpitations, orthopnea, edema, GASTROINTESTINAL: Denies nausea, vomiting, abdominal pain, diarrhea, constipation, melena. : Denies dysuria, frequency, incontinence, hematuria, urinary retention. MUSCULOSKELETAL: denies weakness, joint pain, or bony pain SKIN: Denies rash, skin lesions, or other NEUROLOGIC: Denies weakness, headache, numbness, change in speech, confusion, seizures, incoordination. PSYCHIATRIC: No concerning psychosocial issues. 12 point review of systems is negative except for those stated above Patient History Medical History (Updated 02/05/23 @ 18:22 by Solomon Mckeon DO) Acne (~05/2021) AMA (advanced maternal age) primigravida 35+ COVID-19 (~12/2020) Hypertension affecting Family History Father Diabetes mellitus Hypertension Mother Pre-diabetes Grandfather Cough Grandmother No problems noted. Grandfather No problems noted. Grandmother No problems noted. Sister Healthy adult Sister Healthy adult Brother Healthy adult Family/Other Diabetes mellitus Social History marital status: unmarried,living together number of children: 0 household members: significant other and family lives independently: Yes caregiver/support person: Yes pets and animals: No education level: college occupational status: employed current occupational exposures/hazards: Yes Previous occupational history: [employer] : works on [employer]. special elke needs: No Smoking Status: Never smoker second hand exposure: No alcohol intake: former substance use type: does not use Smoking Status: Never smoker alcohol intake frequency: other Substance Use Type: does not use Exam Narrative Exam Narrative: GEN: AOx3 and in mild distress EYES: Pupils are equal, round, and reactive to light and accommodation. Ex traoccular muscles are intact bilaterally. There is no subconjunctival hemorrhage or exudate. CHEST: Lungs are clear to auscultation bilaterally and free of wheezes, rales, or rhonchi. Heart rate is regular rhythm, there are no murmurs, clicks, rubs, or gallops. There is no chest wall tenderness. ABD: Abdomen is soft and nontender. There is no guarding or rebound. Bowel sounds are normal in all 4 quadrants. There is no mass or organomegaly. EXT: Full painless ROM of all extremities with no loss of sensation or strength. SKIN: Warm, pink, and dry. No erythema or rash Initial Vital Signs Initial Vital Signs: Vital Signs Temperature 98 F 02/05/23 16:09 Pulse Rate 87 02/05/23 16:09 Respiratory Rate 17 02/05/23 16:09 Blood Pressure 145/88 H 02/05/23 16:09 Pulse Oximetry 100 02/05/23 16:09 Oxygen Delivery Method Room Air 02/05/23 16:09 Course Vital Signs Vital signs: Vital Signs - 8 hr 02/05/23 16:09 02/05/23 18:00 02/05/23 17:30 Temperature 98 F Pulse Rate 87 68 78 Respiratory Rate 17 12 12 Blood Pressure 145/88 H 114/72 121/69 Pulse Oximetry 100 100 100 Oxygen Delivery Method Room Air Room Air Room Air 02/05/23 18:11 Temperature Pulse Rate 78 Respiratory Rate 12 Blood Pressure 116/72 Pulse Oximetry Oxygen Delivery Method Medical Decision Making Lab Data Labs: Point of Care Testing Test Results Positive Urine Dip Bedside Urine Glucose Negative Bedside Urine Bilirubin - Negative Bedside Urine Ketone - Negative Urine Specific [place] 1.005 Bedside Urine Occult Blood - Negative Bedside Urine pH 6.0 Bedside Urine Protein - Negative Bedside Urine Urobilinogen - Negative Bedside Urine Nitrite - Negative Bedside Urine Leukocytes - Negative Esterase Point of care testing: Point of Care Testing Test Results Positive Urine Dip Bedside Urine Glucose Negative Bedside Urine Bilirubin - Negative Bedside Urine Ketone - Negative Urine Specific [place] 1.005 Bedside Urine Occult Blood - Negative Bedside Urine pH 6.0 Bedside Urine Protein - Negative Bedside Urine Urobilinogen - Negative Bedside Urine Nitrite - Negative Bedside Urine Leukocytes - Negative Esterase MDM Narrative Medical decision making narrative: [37] year old patient presents with Multiple etiologies for patient's symptoms considered including, but not limited to: [gestational HTN, pre-eclampsia vs. other] Prior Charts reviewed in our EMR Primary Historian: patient Labs reviewed and interpreted by myself: Urine POC without protein Patient completely asymptomatic, initial blood pressure slightly elevated, improves to 116/72. Urine without evidence of protein. No indication for further workup. Findings and discharge diagnosis discussed with patient/family followed by verbalization of understanding Return precautions discussed with patient/family whom verbalize understanding of diagnosis and plan Discharge Plan Departure Patient Disposition: Home Clinical Impression: Feared complaint without diagnosis Instructions: Pre-eclampsia Activity Restrictions/Additional Instructions: *You have been diagnosed with [brief elevated blood pressure, resolved on arrival. As we discussed your history and physical exam are reassuring and current vital signs are normal, urine shows no protein or other abnormal finding. There is no indication for a further workup at this time.] *What to do: *Please continue to take your regular medications as directed. *Please follow up with your primary care provider in 2-3 days, call for an appointment. Let them know you were seen in the Emergency Department and that we ask that you be seen in follow up. We will electronically transmit a record of today's note if your PCP is in our system *If you do not have a primary care provider please contact the [facility] Resource line at [phone]. They will ask some questions about your medical history and help get you set up with a doctor in the community. *Return to Emergency Department if you should have any new, worsening or concerning symptoms, such as [fever greater than 101 F, shaking chills, worsening pain, persistent vomiting or other bothersome symptoms] Prescriptions: No Action prenat.vits,ldiya,ffl-xrxu-mluqh Tablet 1 tab PO DAILY Referrals: ProviderAlessandra [Primary Care Provider] - Stand Alone Forms: Patient Portal/API
== END 2023-02-05 18:26 | disposition home or self-care (01) ==
PROVIDERS: Emergency Provider Emergency Medicine
DX: O16.1 Unspecified maternal hypertension, first trimester (principal)
CPT/HCPCS: 81003; 81025; 99282

== ENCOUNTER → 2023-02-25 16:03 | Outpatient (CLI) | payer OTHER, MEDICAID, SELFPAY ==
--- NOTE | 2023-02-25 16:04 | DI.US.S_ITS ---
PROCEDURE: US OB <= 14 WEEKS FETUS INDICATIONS: dating and viability OUTSIDE/PRIOR DATING DATA: Last menstrual period (LMP): December 22, 2022. LMP-based estimated date of delivery (ALEXUS): September 28, 2023. First dating scan (date and location): February 25, 2022. Estimated date of delivery (ALEXUS) from first dating scan: October 20, 2023. TECHNIQUE: Real-time scanning was performed of the fetus and maternal pelvic organs, with image documentation. Endovaginal scanning was also performed to better visualize the fetus and maternal ovaries. COMPARISON: [facility], , OB <= 14 WEEKS FETUS, 07/17/2021, 14:52. FINDINGS: Embryo: Single intrauterine gestation with estimated sonographic gestational age of approximately 6 weeks and 1 day based off crown-rump length measurement of approximately 0.4 cm. A 2nd amnion is visualized without pole or cardiac activity. Heart rate: No cardiac activity visualized on today's exam. Maternal organs: The right ovary is not visualized. Left ovary demonstrates presence of a corpus luteal cyst. No suspicious ovarian/adnexal masses. IMPRESSION: Intrauterine gestational sac with visualization of 2 amnions. 1 contains a pole measuring approximately 6 weeks and 1 day in gestational age based off crown-rump length measurement. No cardiac activity visualized. The 2nd amnion does not contain either a pole or evidence for cardiac activity. Recommend clinical correlation and surveillance with short interval repeat imaging to document expected progression of . We strive to produce accurate, complete, and clear reports of imaging services. To assist us in improving patient care, this report was composed using standard report templates and voice recognition software. Therefore, it may contain abnormal punctuation, insertions and/or omissions. Occasional wrong-word or sound-alike substitutions may occur. Though we review the report and make efforts to correct it, we do recommend that the report be read carefully in proper context to recognize any text inaccuracies. Dictated by: Cj Moss M.D. on 02/26/2023 at 10:49 Approved by: Cj Moss M.D. on 02/26/2023 at 11:04
== END ==
PROVIDERS: Referring Provider Obstetrics & Gynecology; Visit Provider Obstetrics & Gynecology
DX: O36.80X0 Pregnancy with inconclusive fetal viability, not applicable or unspecified
CPT/HCPCS: 76801; 76817

== ENCOUNTER → 2023-07-14 16:29 | Outpatient (CLI) | payer OTHER, MEDICAID, SELFPAY ==
--- NOTE | 2023-07-14 16:30 | DI.US.S_ITS ---
PROCEDURE: US OB <= 14 WEEKS FETUS INDICATIONS: DATING OUTSIDE/PRIOR DATING DATA: First dating scan (date and location): 07/14/2023. Estimated date of delivery (ALEXUS) from first dating scan: 02/10/2024. TECHNIQUE: Real-time scanning was performed of the fetus and maternal pelvic organs, with image documentation. Endovaginal scanning was also performed to better visualize the fetus and maternal ovaries. COMPARISON: [facility], , OB <= 14 WEEKS FETUS, 02/25/2023, 16:09. FINDINGS: Embryo: [place]-rump length measures 3 cm corresponding to 9 weeks 6 days. Heart rate: 169 Maternal organs: Adnexa grossly normal bilaterally. IMPRESSION: 9 week 6 day single living IUP. We strive to produce accurate, complete, and clear reports of imaging services. To assist us in improving patient care, this report was composed using standard report templates and voice recognition software. Therefore, it may contain abnormal punctuation, insertions and/or omissions. Occasional wrong-word or sound-alike substitutions may occur. Though we review the report and make efforts to correct it, we do recommend that the report be read carefully in proper context to recognize any text inaccuracies. Dictated by: Alexis GIBBONS Interpreted: Tasha Garcia MD on 07/14/2023 at 20:35 Transcribed by: ALEX on 07/15/2023 at 8:20 Approved by: Tasha Garcia M.D. on 07/15/2023 at 10:23
== END ==
PROVIDERS: Referring Provider Specialist; Visit Provider Specialist
DX: Z34.81 Encounter for supervision of other normal pregnancy, first trimester (principal); Z3A.09 9 weeks gestation of pregnancy
CPT/HCPCS: 76801; 76817

== ENCOUNTER → 2023-08-03 15:18 | Outpatient (CLI) | payer OTHER, MEDICAID, SELFPAY ==
[2023-08-03 15:47] LABS: Specimen Label NATERA TEST KIT.
[2023-08-03 16:16] LABS: Add Manual Diff / Slide Review NO; Basophils Absolute Auto 100 /uL (0-100); Basophils Percent Auto 0.9 % (0-2); Eosinophils Absolute Auto 300 /uL (0-450); Eosinophils Percent Auto 2.8 % (2-4); Hematocrit 38.7 % (36-46); Hemoglobin 13.3 g/dL (12.0-16.0); Lymphocytes Absolute Auto 1900 /uL (1100-4500); Lymphocytes Percent Auto 19.7 % (25-40); Mean Corpuscular HGB Conc 34.3 % (30-36); Mean Corpuscular Hemoglobin 27.8 PG (26-34); Mean Corpuscular Volume 81.2 fL (80-100); Monocytes Absolute Auto 800 /uL (0-900); Monocytes Percent Auto 8.6 % (3-14); Neutrophils Absolute Auto 6400 /uL (1500-7000); Platelet Count 291 X10^3/uL (150-400); Red Blood Cell Count 4.77 X10^6/uL (4.0-5.2); Red Cell Distribution Width 13.5 % (11.6-14.8); White Blood Cell Count 9.4 X10^3/uL (4.5-11.0)
[2023-08-03 17:14] LABS: Hepatitis B Surface Antigen NEGATIVE s/c (NEGATIVE)
[2023-08-03 17:27] LABS: HIV 1 & 2 Ab/Ag 4th Gen Combo NEGATIVE (NEGATIVE); Hep C Virus Ab w/Reflex Quant NEGATIVE s/c (NEGATIVE)
[2023-08-04 05:54] LABS: RPR Screen Non Reactive (Non Reactive)
[2023-08-04 12:56] LABS: Varicella IgG Antibody 2038 index (Immune >165)
== END ==
PROVIDERS: Specialist; Referring Provider Obstetrics & Gynecology; Visit Provider Obstetrics & Gynecology
DX: Z34.81 Encounter for supervision of other normal pregnancy, first trimester (principal); Z34.80 Encounter for supervision of other normal pregnancy, unspecified trimester
CPT/HCPCS: 80055; 86787; 86803; 86850; 86900; 86901; 87389

== ENCOUNTER → 2023-08-31 15:42 | Outpatient (CLI) | payer OTHER, MEDICAID, SELFPAY ==
[2023-09-02 22:29] LABS: AFP Value 36.3 ng/mL (.); Gest Age on Col Date 20.7 weeks (.); Insulin Dep Diabetes No (.); OSBR Risk 1IN 10000 (.); Results Report (.); Test Results *Screen Negative* (.)
[2023-09-03 09:40] LABS: PDF SCANNED
== END ==
PROVIDERS: Referring Provider Obstetrics & Gynecology; Visit Provider Obstetrics & Gynecology
DX: Z34.82 Encounter for supervision of other normal pregnancy, second trimester (principal); Z3A.17 17 weeks gestation of pregnancy
CPT/HCPCS: 36415; 82105

== ENCOUNTER → 2023-10-01 16:00 | Outpatient (CLI) | payer OTHER, MEDICAID, SELFPAY ==
--- NOTE | 2023-10-01 16:01 | DI.US.S_ITS ---
PROCEDURE: US OB >= 14 WEEKS FETUS INDICATIONS: ANATOMY OUTSIDE/PRIOR DATING DATA: Last menstrual period (LMP): Unknown. LMP-based estimated date of delivery (ALEXUS): Unknown. First dating scan (date and location): 07/14/2023. Estimated date of delivery (ALEXUS) from first dating scan: 02/09/2023. The calculations are made using the ultrasound ALEXUS of 02/10/2024. TECHNIQUE: Real-time scanning was performed of the fetus, with image documentation and biometric measurements. Endovaginal scanning: Not performed. COMPARISON: [facility], OB <= 14 WEEKS FETUS, 07/14/2023, 16:44. FINDINGS: General: A single living intrauterine gestation is present. Presentation: Vertex. Placenta: Placental position is anterior, without previa. Amniotic fluid index: 11.8 cm, normal range is 5-24 cm. Single deepest vertical pocket is 3.5 cm. heart rate: 163 beats per minute. Maternal cervical canal: 4.9 cm long. Normal lower limit is 2.5 cm. biometrics: Biparietal diameter: 5.0 cm, 21 weeks 0 days Head circumference: 18.2 cm, 20 weeks 4 days Abdominal circumference: 15.8 cm, 21 weeks 0 days Femur length: 3.5 cm, 21 weeks 1 day Clinically estimated gestational age: 21 weeks 1 day Composite gestational age from present scan: 21 weeks 0 days Estimated weight and percentile: 391 g, 36 percentile. Anatomic survey: Neuro: Ventricles are non-dilated at less than 10 mm. Cisterna magna is normal at 3-11 mm. Cerebellum is normal in size and morphology. Nuchal skin fold: Normal at less than 6 mm between 14-21 weeks gestational age. Face: Nose and lips, facial profile are normal. Spine: No evidence for spina bifida. Heart: 4-chambered heart is present, with normal ventricular outflow tracts. Diaphragm: Diaphragm is intact. Stomach: Left-sided stomach is present. Kidneys: No hydronephrosis. Normal is less than 5 mm in 2nd trimester, less than 7 mm in 3rd trimester. Cord: 3-vessel cord has orthotopic insertion. Bladder: Normal in size. Extremities: All 4 extremities identified. IMPRESSION: 1. James living intrauterine at 21 weeks 0 days based on today's ultrasound. Fetus is in the 36 percentile for weight. 2. Normal placenta and amniotic fluid. 3. Normal and complete anatomic survey. We strive to produce accurate, complete, and clear reports of imaging services. To assist us in improving patient care, this report was composed using standard report templates and voice recognition software. Therefore, it may contain abnormal punctuation, insertions and/or omissions. Occasional wrong-word or sound-alike substitutions may occur. Though we review the report and make efforts to correct it, we do recommend that the report be read carefully in proper context to recognize any text inaccuracies. Dictated by: Tian Duque M.D. on 10/03/2023 at 23:07 Approved by: Tian Duque M.D. on 10/03/2023 at 23:11
== END ==
PROVIDERS: Referring Provider Obstetrics & Gynecology; Visit Provider Obstetrics & Gynecology
DX: Z34.82 Encounter for supervision of other normal pregnancy, second trimester (principal); Z3A.20 20 weeks gestation of pregnancy
CPT/HCPCS: 76811

== ENCOUNTER → 2023-11-10 09:09 | Outpatient (CLI) | payer OTHER, SELFPAY ==
[2023-11-10 12:00] LABS: Hematocrit 38.7 % (36-46); Hemoglobin 13.2 g/dL (12.0-16.0)
[2023-11-10 12:22] LABS: GTT (PREG) 1 Hour PP 50gm Dose 140 mg/dL (76-139)
== END ==
PROVIDERS: Referring Provider Obstetrics & Gynecology; Visit Provider Obstetrics & Gynecology
DX: Z34.90 Encounter for supervision of normal pregnancy, unspecified, unspecified trimester (principal); Z3A.26 26 weeks gestation of pregnancy
CPT/HCPCS: 36415; 82950; 85014; 85018

== ENCOUNTER → 2023-11-29 07:50 | Outpatient (CLI) | payer OTHER, SELFPAY ==
[2023-11-29 08:57] LABS: Glucose Fasting Gestational 83 mg/dL (76-95)
[2023-11-29 09:56] LABS: Glucose 1 Hour Gest 152 mg/dL (76-180)
[2023-11-29 11:33] LABS: Glucose Tol Interp,Gestational INTERPRETATION
[2023-11-29 11:42] LABS: Glucose 2 Hour Gest 121 mg/dL (76-155)
[2023-11-29 12:36] LABS: Glucose 3 Hour Gest 60 mg/dL (76-140)
== END ==
LOC: LAB 07:51
PROVIDERS: Referring Provider Obstetrics & Gynecology; Visit Provider Obstetrics & Gynecology
DX: O99.810 Abnormal glucose complicating pregnancy (principal)
CPT/HCPCS: 36415; 82951; 82952

== ENCOUNTER → 2024-01-11 11:56 | Outpatient (CLI) | payer OTHER, SELFPAY ==
[2024-01-12 11:42] LABS: Strep Grp B PCR POS for Grp B Strep
== END ==
PROVIDERS: PCP Student in an Organized Health Care Education/Training Program; Visit Provider Obstetrics & Gynecology
DX: Z34.83 Encounter for supervision of other normal pregnancy, third trimester (principal)
CPT/HCPCS: 87653

== ENCOUNTER → 2024-01-18 09:20 | Outpatient (CLI) | payer OTHER, SELFPAY | PROVIDERS: PCP Student in an Organized Health Care Education/Training Program; Visit Provider Obstetrics & Gynecology | DX: R82.998 Other abnormal findings in urine (principal) | CPT/HCPCS: 87086 ==

== ENCOUNTER 2024-02-03 06:02 | Inpatient (IN) | payer OTHER, SELFPAY ==
--- NOTE | 2024-02-02 18:05 | PM.OBHP.1 ---
OB HPI Date/Time Date of admission: 02/02/24 Date Patient Seen: 02/02/24 Time Patient Seen: 07:15 History of Present Condition Chief complaint: Repeat w/davey salpingectomy : 3 Para: 1 Estimated Date of Delivery: 02/06/24 Estimated Gestational Age (weeks): 39+4 Narrative: Karli Feng is a 38 year old , admitted now at 39+ 4 weeks gestational age for repeat section and bilateral salpingectomy for elective sterilization. Patient's course has been largely unremarkable with the exception that she had an abnormal 1 hour GDM screen 3 hour GTT did not meet criteria for gestational diabetes. Early dating is solid and she has had appropriate milestones throughout. GBS is positive. Indications Operative indications ( section): previous uterine surgery History of Present care: good care Dating criteria: LMP confirmed by 1st trimester US Ultrasounds: normal 1st trimester US and normal mid trimester US Obstetrical complications: none Medical complications: none Preadmission Labs Blood type: B (+) positive -: Antibody screen: negative, GBS status: positive, HBsAG: negative, HIV: negative and RPR/VDLR: negative -: Chlamydia screen: not detected and Gonorrhea screen: not detected -: Rubella: immune and Varicella: immune HCT: 38.7 HCAB: negative PAP: Normal Quad screen: Normal (AFP) Cell-free DNA: Low risk female 1 hr GTT: 140 3 hr GTT: 1 hr (152), 2 hr (121) and 3 hr (60) Fasting blood glucose: 83 Prior (ies) History: CS x1 PFSH Medical History (Updated 01/18/24 @ 09:41 by Rio Walters MD) Spontaneous miscarriage Hypertension affecting Abnormal O'Figueredo glucose challenge test, antepartum COVID-19 (~12/2020) Acne (~05/2021) AMA (advanced maternal age) primigravida 35+ Surgical History (Updated 08/31/23 @ 15:38 by Rio Walters MD) Previous section Family History (Updated 02/23/23 @ 15:40 by Berenice Peralta RN) Father Diabetes mellitus Hypertension Mother Pre-diabetes Grandfather Cough Grandmother No problems noted. Grandfather Alzheimer's disease Grandmother No problems noted. Sister Healthy adult Sister Healthy adult Brother Healthy adult Family/Other Diabetes mellitus Social History marital status: number of children: 1 household members: spouse, family (mother) and children lives independently: Yes caregiver/support person: Yes housing: [facility] ([facility]) pets and animals: No education level: college (some college) occupational status: employed current occupational exposures/hazards: No (no hazmat duties while ) Previous occupational history: [employer] : works on [employer]. special elke needs: No travel history: recent ([place]) seatbelt use: always water heater temp set < 120 deg: Yes working smoke detector in home: Yes fire extinguisher in home: No carbon monox detector in home: Yes firearms in home: No do you feel safe at home: Yes Smoking Status: Never smoker second hand exposure: No alcohol intake: former (occasionally when not or ) substance use type: does not use during the past year weight has: other (baby is only 10 months old, currently ~15 lb above pre-baby weight) well-balanced diet: about half the time daily servings fruits/ve-4 caffeine: Yes (1-2 cups coffee/day) Type(s) of exercise: walking frequency: 1-2 times per week Meds Home Medications and Allergies Home Medications Medication Instructions Recorded Confirmed Type prenat.vits,lidya,syz-exaq-oktec 1 tab PO DAILY 07/22/21 01/25/24 History ascorbic acid (vitamin C) 1,000 mg 1 g PO DAILY 02/23/23 01/25/24 History capsule vit no.95-ferrous 1 tab PO DAILY #90 tabs 09/28/23 01/25/24 Rx fumarate 28 mg-folic acid 800 mcg tablet ( Multivitamins) Allergies Allergy/AdvReac Type Severity Reaction Status Date / Time No Known Drug Allergies Allergy Verified 01/25/24 10:37 Review of Systems Review of Systems Narrative: Problem-specific ROS positives included in HPI OB Exam Vital signs Blood Pressure: 141/75 Pulse Rate: 71 HENMT Head: normal to inspection, normocephalic and atraumatic Eyes General: appearance normal, both eyes and all related structures Resp Effort & Inspection: normal respiratory effort and able to speak in complete sentences Auscultation: clear to auscultation bilaterally Cardio Rate: regular rate Rhythm: regular rhythm Heart Sounds: S1 normal, S2 normal and no murmurs Extremities Lower extremity: Yes normal to inspection GI Inspection: normal to inspection Palpation: Yes soft and Yes no hepatosplenomegaly Uterus Location (Fundal Height): 38 Presentation: vertex Estimated Weight (lbs): 8 Objective Labs 02/03/24 06:50 Assessment and Plan Assessment and Plan Assessment and Plan narrative: ASSESSMENT 1. Intrauterine , 39+4 wks 2. Prior section 3. Request for sterilization PLAN 1. Admit for repeat CS and bilateral salpingectomy 2. See admission orders
[2024-02-03] VITALS (7 sets, daily range): BP systolic 122–150; BP diastolic 75–98; PULSE 70–88; RESP 11–18; TEMP 36.2–36.8; O2SAT 99
--- NOTE | 2024-02-03 | PATH_ITS ---
[facility] Accession Number: [id number] No. of containers..01 Tissue . 01 Material submitted: . fallopian tube - BILATERAL FALLOPIAN TUBES . 01 Diagnosis: BILATERAL FALLOPIAN TUBES, BILATERAL SALPINGECTOMY: Benign bilateral fallopian tubes. . MRV 02/07/2024 1632 Local . 01 Electronically signed: . Deonna Lundberg MD, Pathologist NPI- [id number] . 01 Gross description: . Received in formalin with two identifiers and bilateral fallopian tubes, are two unoriented fimbriated fallopian tubes measuring 7.8 x 0.9 cm and 8.3 x 0.9 cm, respectively. Both tubes have violaceous, smooth serosa with no cysts identified. Sectioning reveals unremarkable stellate lumens. Photography Instructor sections to include one-half of bisected fimbriae and cross sections are submitted as follows: . A1: Longer fallopian tube. A2: [place] fallopian tube. ([id number]) /MRV 02/04/2024 1232 Local . 01 Pathologist provided ICD-10: Z30.2, Z98.891 . 01 CPT . 106047, 970533 Specimen Comment: A courtesy copy of this report has been sent to [phone] Performed at: 01 [facility] [address] [place] [address] [address], [place], [place] [id number] MD Aniket No MD Phone: [phone]
[2024-02-03 07:18] LABS: Add Manual Diff / Slide Review NO; Basophils Absolute Auto 100 /uL (0-100); Eosinophils Absolute Auto 100 /uL (0-450); Eosinophils Percent Auto 1.2 % (2-4); Hemoglobin 14.2 g/dL (12.0-16.0); Lymphocytes Absolute Auto 1900 /uL (1100-4500); Mean Corpuscular HGB Conc 33.9 % (30-36); Mean Corpuscular Hemoglobin 28.2 PG (26-34); Mean Corpuscular Volume 83.4 fL (80-100); Monocytes Absolute Auto 900 /uL (0-900); Monocytes Percent Auto 8.8 % (3-14); Neutrophils Absolute Auto 6900 /uL (1500-7000); Platelet Count 216 X10^3/uL (150-400); Red Blood Cell Count 5.04 X10^6/uL (4.0-5.2); Red Cell Distribution Width 15.1 % (11.6-14.8); White Blood Cell Count 9.9 X10^3/uL (4.5-11.0)
--- NOTE | 2024-02-03 07:32 | PM.PREOP ---
Pre-operative Note COVID-19 COVID-19 status: Not tested Interval Note History & Physical reviewed/Exam performed by Physician: Yes Changes to H&P: No
[2024-02-03] MEDS: CEFAZOLIN 2 GM/100 ML PREMIX 100 ML IV (08:03)
[2024-02-03] MEDS: ACETAMINOPHEN IV 1,000 MG/100 ML VIAL 400 MG IV (08:10)
--- NOTE | 2024-02-03 09:43 | P.OP_ITS ---
Operative Date/Time/Diagnoses Date of procedure: 02/03/24 Time of procedure: 08:15 Pre-op diagnosis: Intrauterine gestation, jean, 39+4 weeks EGA Previous section x 1 Request for sterilization Post-op diagnosis: same Procedure & Clinicians Procedure: Repeat section (low transverse cervical) Bilateral salpingectomy Same procedure as scheduled: Yes Indications: Karli Feng is a 38 year old , admitted now at 39+ 4 weeks gestational age for repeat section and bilateral salpingectomy for elective steri lization. Patient's course has been largely unremarkable with the exception that she had an abnormal 1 hour GDM screen 3 hour GTT did not meet criteria for gestational diabetes. Early dating is solid and she has had appropriate milestones throughout. GBS is positive. Surgeon: Rio Walters Auger Press Operator: Shell Parra Reason for Auger Press Operator: Auger Press Operator required for the safe, effective, and timely completion of this surgery. Anesthesia Type: Spinal Operative Notes Findings: Viable female BW 2175 gms. (4 lbs. 12.7 oz.), Apgars 9/9, delivered from the vertex presentation. Normal gravid anatomy. Closure Type: primary Specimen(s): cord blood Intraoperative meds administered: Ketorolac and Pitocin Applied: Catheter Estimated Blood Loss (mL): 400 Blood products transfused: none Procedure in detail: With her informed written consent, the patient was taken to the operating room and placed in the supine position for a [] section procedure, for the indication(s) above. The abdomen was prepped and draped in the usual manner for section and a pre-surgical timeout was taken per [facility] OR protocol. Once effective anesthesia was confirmed, a 15 cm transverse Pfan nenstiel incision was made in the skin and taken down through the subcutaneous tissues to the deep fascia. The deep fascia was incised transversely, the rectus abdominal eyes bluntly and sharply, and the peritoneal cavity entered without difficulty. The lower uterine segment was visualized and the position/presentation palpated. A transverse incision at or above the vesicouterine reflection was made with Metzenbaum scissors and transverse hysterotomy performed near the midline. Amniotomy revealed [] fluid. The incision was extended bilaterally with digital traction and the was delivered [] from the [] presentation. The infant was vigorous and cord clamping delayed for 60 seconds. The placenta was delivered intact using gentle cord traction and fundal massage.The uterine cavity was then cleared of any clot/debris first with a sloppy wet lap tape followed by a dry lap tape. Ring forceps were then applied to the angles and the midline of the incised ATUL. A primary closure of the uterus was then accomplished with #1 CCGS in a running interlocking stitch followed by a 2nd layer of #1 CCGS in a running interlocking imbricating stitch. No additional sutures was/were required to achieve complete hemostasis. Attention was then turned to performance of the bilateral salpingectomy and the desire for permanent sterilization was reconfirmed with the patient. The left fallopian tube was grasped at its distal most portion and using the handheld LigaSure device, the fimbria home varicose was coagulated and divided with the device then taken across the mesosalpinx to the cornua where the cornual portion of the fallopian tube was transected and the specimen removed. There was excellent hemostasis in the left adnexa following salpingectomy. Attention was then turned to the right with the distal right tube grasped and the fimbria ovarian divided with the LigaSure device. The device was then taken across the mesosalpinx on the right side to the level of the cornual where the fallopian tube was amputated as it had been on the left. It too was passed off the operative field and the right adnexa was seen to be completely hemostatic. Once pelvic hemostasis was assured, the bladder flap and anterior peritoneum were closed with a running 2-0 Vicryl suture and the fascia closed with #1 Vicryl in a running stitch initiated at both angles and tying separately near the midline. The subcutaneous tissues were reapproximated with 2-0 plain catgut suture using inverted interrupted stitches. The skin edges were then brought together with 4-0 Monocryl in a subcuticular closure and the incision was reinforced with 1 Steri-Strips. An appropriate compression dressing was applied and the patient transferred to PACU for recovery and subsequent transfer to the Center for recuperation. Complications: none [place] Baby 1: Infant Gender: Female Presentation: vertex Position: Left Occiput Transverse Placental Delivery Description: Spontaneous Cord Vessel Description: 3 Vessels score (1 min): 9 score (5 min): 9 weight: 4 lb 12.721 oz Post-operative Condition: stable Disposition: PACU Aftercare: routine postop
--- NOTE | 2024-02-03 10:06 | SUR.PHASEI ---
Report given to Christine who was at bedside during recovery. Patient transferred to the center by
[2024-02-03] MEDS: diphenhydrAMINE 50 MG/ML VIAL 25 MG IV ×2 (12:02→15:05)
[2024-02-03] MEDS: KETOROLAC 30 MG/ML VIAL IV ×2 (15:07→20:58)
[2024-02-03] MEDS: ACETAMINOPHEN 325 MG TABLET 650 MG PO ×2 (15:10→20:58)
[2024-02-03] MEDS: LABETALOL 100 MG TABLET 200 MG PO (22:01)
[2024-02-04 01:00] VITALS: BP 141/90; PULSE 88
[2024-02-04] MEDS: KETOROLAC 30 MG/ML VIAL IV (03:14)
[2024-02-04] MEDS: ACETAMINOPHEN 325 MG TABLET 650 MG PO ×4 (03:15→20:59)
[2024-02-04 06:29] LABS: Add Manual Diff / Slide Review NO; Basophils Absolute Auto 100 /uL (0-100); Basophils Percent Auto 0.5 % (0-2); Eosinophils Absolute Auto 100 /uL (0-450); Eosinophils Percent Auto 1.2 % (2-4); Hematocrit 28.3 % (36-46); Hemoglobin 9.9 g/dL (12.0-16.0); Lymphocytes Absolute Auto 1200 /uL (1100-4500); Lymphocytes Percent Auto 11.9 % (25-40); Mean Corpuscular HGB Conc 34.8 % (30-36); Mean Corpuscular Volume 83.3 fL (80-100); Monocytes Absolute Auto 800 /uL (0-900); Monocytes Percent Auto 8.2 % (3-14); Neutrophils Absolute Auto 8000 /uL (1500-7000); Neutrophils Percent Auto 78.2 % (50-75); Platelet Count 139 X10^3/uL (150-400); Red Cell Distribution Width 14.7 % (11.6-14.8); White Blood Cell Count 10.3 X10^3/uL (4.5-11.0)
[2024-02-04 08:24] VITALS: BP 146/82; PULSE 80
[2024-02-04] MEDS: PRENATAL VIT,CALC/IRON/FOLIC 1 TABLET 1 TAB PO (08:24)
[2024-02-04] MEDS: LABETALOL 100 MG TABLET 200 MG PO ×2 (08:24→15:11)
[2024-02-04] MEDS: IBUPROFEN 600 MG TABLET PO ×3 (09:42→20:59)
[2024-02-04 15:11] VITALS: BP 132/82; PULSE 75
--- NOTE | 2024-02-04 17:09 | PM.OBPN.1 ---
Subjective - OB Subjective Patient comments: no complaints, pain well controlled, incisional pain, tolerating diet and flatus present baby status: doing well, nursing well and other (Rechecking weight in AM prior to discharge) feeding status: exclusively breast feeding Narrative: Doing well overnight status post repeat section. Her is SGA but doing well although stability of weight is yet to be determined. Mother is having no N&V but has required benadryl for itching. Date Patient Seen: 02/04/24 Time Patient Seen: 12:40 Exam Vital Signs (past 8 hours): - 02/04/24 15:11 Pulse Rate 75 Blood Pressure 132/82 Oxygen Delivery Method Room Air Const General: cooperative and comfortable Nutritional Appearance: average body habitus Orientation: alert and oriented x3 HENMT Head: normal to inspection, atraumatic and abrasion Ears: hearing grossly normal bilaterally Face and sinus: face symmetric Eyes General: appearance normal, both eyes and all related structures Conjunctivae: conjunctivae normal Sclera: sclerae normal EOM: EOM intact bilaterally Neck Neck: normal visual inspection Resp Effort & Inspection: normal respiratory effort and able to speak in complete sentences Auscultation: clear to auscultation bilaterally Cardio Rate: regular rate Rhythm: regular rhythm Heart Sounds: S1 normal, S2 normal and no murmurs GI Inspection: normal to inspection and incision (Surgical dressing clean and dry) Palpation: soft, no hepatosplenomegaly and tender (Mild, diffuse postsurgical tenderness) External Female Exam: other (No significant bleeding noted) Uterus Location (Fundal Height): 14 Extrem General: no calf tenderness Psych Appearance: grossly normal Mental Status: mental status grossly normal Speech and Movement: speech and movement normal Mood: congruent mood Affect: normal affect Attitude: cooperative Thought Process: normal Thought Content: normal Judgment: judgment good Objective Labs 02/04/24 06:00 Labs: Laboratory Results - last 24 hr 02/04/24 06:00 WBC 10.3 RBC 3.40 L Hgb 9.9 L Hct 28.3 L MCV 83.3 MCH 29.0 MCHC 34.8 RDW 14.7 Plt Count 139 L Neut % (Auto) 78.2 H Lymph % (Auto) 11.9 L [place] % (Auto) 8.2 Eos % (Auto) 1.2 L Baso % (Auto) 0.5 Neut # (Auto) 8000 H Lymph # (Auto) 1200 [place] # (Auto) 800 Eos # (Auto) 100 Baso # (Auto) 100 Assessment & Plan Plan day: 1 plan OB: routine postop care Comments: Anticipate discharge in the AM Time Spent With Patient Time: Total time spent is greater than 50% in coordination of care (as documented) at patient's floor/unit and/or counseling patient: Time with patient: less than 15 minutes
[2024-02-04 17:50] VITALS: BP 145/90
[2024-02-04] MEDS: NIFEdipine 30 MG TAB ER PO (21:01)
[2024-02-05] MEDS: ACETAMINOPHEN 325 MG TABLET 650 MG PO ×2 (03:03→08:58)
[2024-02-05] MEDS: IBUPROFEN 600 MG TABLET PO ×2 (03:03→08:58)
--- NOTE | 2024-02-05 08:42 | P.DS_ITS ---
History of Present Illness History of Present Illness Date Patient Seen: 02/05/24 Time Patient Seen: 08:43 Date of Onset of Symptoms: 02/02/24 Chief complaint: Repeat w/davey salpingectomy Discharge Providers Provider Date of admission: 02/03/24 06:02 Discharge Date: 02/05/24 Primary care physician: Leonardo Zhao Consults: 02/03/24 10:07 Consult to Material Requisitioner Routine Comment: Discharge provider: Ofe Castro MD Summary Hospital Course Discharge Diagnosis: s/p repeat section with bilateral salpingectomy Hospital Course: 38yo at 39+ 4 weeks gestational age admitted for repeat section and bilateral salpingectomy for elective sterilization. Patient had all routine care, antepartum course notable for elevated 1h OGTT (3h wnl), MFM eval for echo secondary to prior child with CHD (no anomalies identified). Patient underwent procedure per Dr. Walters without complication, liveborn SGA female . EBL 400. Immediate postoperative course was complicated by new mild range maternal BP without additional sequelae. Patient was started on 200mg labetalol TID on POD1, transitioned to PO nifedipine 30mg XR and remained normotensive thereafter. Breast feeding, s/p sterilization for contraception, Rh+, rubella immune. Patient discharged to home on POD2 meeting all discharge milestones. Pt remained low normotensive on day of discharge; in shared decision making model patient was not discharged home with antihypertensive regimen, instructions given to check BP at home twice daily and notify MD/office with abnormal values. Routine 1wk incision check in office. Status at Discharge Cognitive/behavioral status at discharge: oriented Functional status at discharge: independent ambulation Overall status at discharge: patient is back to baseline Time Spent with Patient Time spent: Greater than 30 minutes Exam Vital Signs (past 8 hours): Oxygen Delivery Method Room Air BP 121/75 HR 90 SpO2 97% RA Narrative Exam Narrative: , NAD Const General: cooperative Nutritional Appearance: average body habitus GI Other: Pfannensteil incision, moderate saturation of inner layer of surgical dressing; removed, c/d/i and aquacell placed fundus firm << umb Skin General: no rashes or lesions noted Extrem General: normal to inspection Psych Appearance: grossly normal Objective Labs 02/04/24 06:00 [facility] Medical History (Updated 01/18/24 @ 09:41 by Rio Walters MD) Spontaneous miscarriage Hypertension affecting Abnormal O'Figueredo glucose challenge test, antepartum COVID-19 (~12/2020) Acne (~05/2021) AMA (advanced maternal age) primigravida 35+ Surgical History (Updated 08/31/23 @ 15:38 by Rio Walters MD) Previous section Family History (Updated 02/23/23 @ 15:40 by Berenice Peralta RN) Father Diabetes mellitus Hypertension Mother Pre-diabetes Grandfather Cough Grandmother No problems noted. Grandfather Alzheimer's disease Grandmother No problems noted. 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 special elke needs: No travel history: recent ([place]) seatbelt use: always water heater temp set < 120 deg: Yes working smoke detector in home: Yes fire extinguisher in home: No carbon monox detector in home: Yes firearms in home: No do you feel safe at home: Yes Smoking Status: Former smoker second hand exposure: No alcohol intake: former (occasionally when not or ) substance use type: does not use during the past year weight has: other (baby is only 10 months old, currently ~15 lb above pre-baby weight) well-balanced diet: about half the time daily servings fruits/ve-4 caffeine: Yes (1-2 cups coffee/day) Type(s) of exercise: walking frequency: 1-2 times per week Discharge Assessment & Plan Assessment and Plan Assessment: 38yo POD2 s/p RCS with BS Plan of Treatment: Stable and appropriate for dc to home with routine care, incision check in office 1wk Discharge Plan Discharge Plan Patient Disposition: Home Provider Discharge Comment: Please review the written instructions you received when you were discharged from the hospital. Your follow-up appointment will be scheduled for 1 week after your surgery and I look forward to seeing you then. If however in the meanwhile you have any questions, concerns, or problems, please contact me either through the office phone at [phone], or via the patient portal. Discharge orders & Medications Prescriptions: New acetaminophen 325 mg Tablet 650 mg PO Q6H Qty: 30 0RF ibuprofen 600 mg Tablet 600 mg PO Q6H Qty: 60 0RF sennosides [Senokot] 8.6 mg tablet 8.6 mg PO DAILY PRN (Reason: constipation) Qty: 30 0RF oxycodone 5 mg Tablet 5 mg PO Q4H PRN (Reason: Pain, Moderate (4-6)) Qty: 12 0RF Continued PNV cmb#95-ferrous fumarate-FA [ Multivitamins] 28 mg iron- 800 mcg tablet 1 tab PO DAILY Qty: 90 2RF No Action ascorbic acid (vitamin C) 1,000 mg capsule 1 g PO DAILY prenat.vits,lidya,qyc-lsvf-ptstm Tablet 1 tab PO DAILY Follow up/Referrals: Leonardo Zhao [Primary Care Provider] - Rio Walters MD [Physician] - (Incision check with Dr. Walters on 02/09/2024 @ 1:45pm 6 week appt on 03/21/2024 @ 1015am with Dr. Walters) Discharge Health Status Multidrug resistant organism: No MDRO Diet/Activity/Treatments Diet: Diet as Tolerated Activity: As tolerated Other treatments: Rpua-pyj-mbdwiyl Tylenol and/or ibuprofen may be used for additional pain relief Skin/Wound/Dressing Care Report to your healthcare provider any signs of infection, such as:: chills, fever, increased pain, unusual drainage and unusual redness Dressing: Dressing will be removed at the time of your one-week postop visit Visit Report/Discharge Packet Instructions: DI for , DI for and Nipple Soreness, DI for Prescription Opioid Use Stand Alone Forms: Discharge: Care Discharge Data Primary Care Provider: Leonardo Zhao
[2024-02-05] MEDS: LANOLIN OINT 7 GM 1 APPLIC TOP (08:57)
[2024-02-05 08:58] VITALS: TEMP 36.6
[2024-02-05] MEDS: PRENATAL VIT,CALC/IRON/FOLIC 1 TABLET 1 TAB PO (08:58)
== END 2024-02-05 12:15 | disposition home or self-care (01) | DRG 785 ==
PROVIDERS: Admitting Provider Obstetrics & Gynecology; PCP Student in an Organized Health Care Education/Training Program; Referring Provider Obstetrics & Gynecology; Visit Provider Obstetrics & Gynecology
PROC: 10D00Z1 Extraction of Products of Conception, Low, Open Approach (ICD-10-PCS; CPT 59514; principal; 2024-02-03 07:45)
DX: O34.211 Maternal care for low transverse scar from previous cesarean delivery (principal); Z30.2 Encounter for sterilization; O99.824 Streptococcus B carrier state complicating childbirth; Z37.0 Single live birth; Z3A.39 39 weeks gestation of pregnancy
CPT/HCPCS: 36415; 58611; 59050; 59510; 59514; 85025; 86850; 86900; 86901; J0136; J0690; J1200; J1885; J2274; J2405; J2590; J2704

== ENCOUNTER → 2024-07-17 15:34 | Outpatient (CLI) | payer OTHER, SELFPAY | PROVIDERS: Referring Provider Chiropractor; Visit Provider Chiropractor | DX: A15.0 Tuberculosis of lung (principal); E58 Dietary calcium deficiency; I10 Essential (primary) hypertension; R94.2 Abnormal results of pulmonary function studies | CPT/HCPCS: 94060 ==

== ENCOUNTER → 2024-08-17 08:12 | Outpatient (CLI) | payer OTHER, SELFPAY ==
--- NOTE | 2024-08-17 | DI.ECHO.S_ITS ---
[facility] : : [address] : : [place] : : [id number] : : Phone: [phone] Echocardiogram Report + + :Name: AL HAYWOOD Study Date: 08/17/2024 Height: 61 in : :[facility] ReadingLocation: Weight: 121 lb : : Gender: Female BSA: 1.5 m2 : :: 1985 Age: 38 yrs BP: 115/75 mmHg: :Reason For Study: HYPERTENSION : :Ordering Physician: SOHAM, : :ANUM Performed By: Hermila Lovell : :Referring: ANUM ROUSSEAU : + + Interpretation Summary 1. The left ventricular contractility is normal. Estimate ejection fraction is greater than 55% with no segmental wall motion abnormalities. No LVH. Normal diastolic function. 2. The right ventricular contractility is normal. 3. All cardiac chambers are of normal size. 4. No significant valvular abnormalities. 5. No obvious intracardiac shunts. 6. No obvious intracardiac masses nor thrombi. 7. No hemodynamically significant pericardial effusion. 8. Low right-sided filling pressures. Conclusion: Normal biventricular function with no significant valvular nor structural abnormalities. Procedure: A two-dimensional transthoracic echocardiogram with color flow and Doppler was performed. The study quality was technically adequate. There is no prior echocardiogram noted for this patient. The patient was in sinus rhythm with heart rates between 60-73 bpm during the exam. Left Ventricle: The left ventricle is normal in size and wall thickness. The ejection fraction is estimated to be 60-65%. Right Ventricle: The right ventricle is normal in size and function. Atria: The left atrial size is normal. The right atrium is normal in size. There is no Doppler evidence for an interatrial shunt. Mitral Valve: The mitral valve is normal in structure and function. There is no mitral regurgitation noted. Aortic Valve: The aortic valve is trileaflet. The aortic valve opens well. There is no aortic valve stenosis. No aortic regurgitation is present. Tricuspid Valve: The tricuspid valve is normal in structure and function. There is trace tricuspid regurgitation. Pulmonic Valve: The pulmonic valve leaflets are thin and pliable; valve motion is normal. There is a trace or physiologic amount of pulmonic regurgitation. Great Vessels: The aortic root is normal size. The dimensions of the ascending aorta are normal. The IVC is of normal diameter and collapses greater than 50% with a sniff. This suggests a low right atrial pressure of 3 mm Hg. Pericardium/ Pleura There is no pericardial effusion. There is no pleural effusion. MMode/2D Measurements & Calculations LVIDd: 4.3 cm LVOT diam: 2.0 cm LVIDs: 2.7 cm Ao root diam: 2.6 cm FS: 38.2 % asc Aorta Diam: 2.3 cm EPSS: 0.56 cm Ao Arch Diam (Prox Trans): 2.1 cm IVSd: 0.71 cm LVPWd: 0.67 cm LV denton. diameter/BSA (cm/m^2): 2.8 LV sys. diameter/BSA (cm/m^2): 1.8 LA A2 area: 12.5 cm2 RA long axis: 4.1 cm LA A4 area: 12.0 cm2 RA area: 10.7 cm2 LA length (vol): 4.4 cm RA vol: 23.8 ml LA vol: 28.9 ml RA : 15.6 ml/m2 LA vol index: 18.9 ml/m2 IVC diam: 1.2 cm RVD1 (basal): 2.4 cm RVD2 (mid): 2.2 cm TAPSE: 1.7 cm Doppler Measurements & Calculations Ao V2 max: 118.1 cm/sec LVOT Max Joey: 90.8 cm/sec Ao V2 mean: 87.1 cm/sec LV V1 max P.3 mmHg Ao max P.6 mmHg LV V1 VTI: 17.8 cm Ao mean P.3 mmHg TRICIA(I,D): 2.2 cm2 Ao V2 VTI: 24.2 cm TRICIA(V,D): 2.3 cm2 sev ratio: 0.74 TRICIA indexed to BSA (cm^2/m^2): 1.5 MV E max joey: 70.0 cm/sec PA V2 max: 87.0 cm/sec MV A max joey: 40.8 cm/sec PA V2 mean: 63.0 cm/sec MV E/A: 1.7 PA mean P.7 mmHg Med Peak E' Joey: 11.5 cm/sec PA pr(Accel): 19.1 mmHg E/E' med: 6.1 Lat Peak E' Joey: 13.4 cm/sec E/E' lat: 5.2 E/e' average: 5.6 MV dec time: 0.18 sec SV(LVOT): 54.3 ml Reading Physician:
== END ==
PROVIDERS: Referring Provider Chiropractor; Visit Provider Chiropractor
DX: E58 Dietary calcium deficiency (principal); I10 Essential (primary) hypertension; A15.0 Tuberculosis of lung
CPT/HCPCS: 93306